=== PATIENT | female | born 1980 | race Caucasian/White ===

== ENCOUNTER 2019-05-18 20:51 | Emergency (ER) | payer MEDICAID, SELFPAY ==
[2019-05-18 20:52] VITALS: PULSE 118; RESP 20; O2SAT 95; BMI 24.3
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
--- NOTE | 2019-05-18 21:02 | XR_ITS ---
WS: [id number] Portable AP upright chest, 05/18/2019 Clinical Data: cough Comparison: Portal chest, 03/07/2018. Findings: No nodules, masses or effusions are seen. The heart is normal. The pulmonary vascularity is not increased. No pneumonia or pneumothorax is seen. XR/XR chest 1V portable [id number] Impression: Negative chest.
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
[2019-05-18] MEDS: haloperidol inj 5 mg/mL INJ 1 mL IM ×2 (21:09→21:46)
[2019-05-18 21:29] VITALS: BP 94/78; PULSE 103; RESP 18; O2SAT 96
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
[2019-05-18 23:55] VITALS: PULSE 78; RESP 16; O2SAT 98
== END 2019-05-18 23:56 | disposition home or self-care (01) ==
PROVIDERS: Emergency Provider Emergency Medicine; Family Provider Nurse Practitioner; PCP Nurse Practitioner
DX: S01.81XA Laceration without foreign body of other part of head, initial encounter (principal); Z87.891 Personal history of nicotine dependence; Y04.2XXA Assault by strike against or bumped into by another person, initial encounter
CPT/HCPCS: 12345; 70450; 71045; 72125; 96372; 99281; 99284; J1630

== ENCOUNTER → 2019-06-08 13:27 | Outpatient (BNVA) | payer MEDICAID, SELFPAY | PROVIDERS: Family Provider Nurse Practitioner; PCP Nurse Practitioner; Visit Provider Specialist | DX: G43.711 Chronic migraine without aura, intractable, with status migrainosus (principal); F17.210 Nicotine dependence, cigarettes, uncomplicated | CPT/HCPCS: 99213 ==

== ENCOUNTER → 2019-06-09 12:17 | Outpatient (BNVA) | payer MEDICAID, SELFPAY | PROVIDERS: Family Provider Nurse Practitioner; PCP Nurse Practitioner; Visit Provider Family Medicine | DX: N89.8 Other specified noninflammatory disorders of vagina (principal); Z72.51 High risk heterosexual behavior; N76.0 Acute vaginitis | CPT/HCPCS: 81000; 87070; 87086; 87491; 87591 ==

== ENCOUNTER → 2019-06-16 17:40 | Outpatient (BNVA) | payer MEDICAID, SELFPAY | PROVIDERS: Family Provider Nurse Practitioner; PCP Nurse Practitioner; Visit Provider Family Medicine | DX: R50.9 Fever, unspecified (principal) | CPT/HCPCS: 87400 ==

== ENCOUNTER → 2019-08-21 07:42 | Outpatient (BNVA) | payer MEDICAID, SELFPAY | PROVIDERS: Family Provider Nurse Practitioner; PCP Nurse Practitioner; Visit Provider Psychiatry & Neurology Psychiatry | DX: F33.2 Major depressive disorder, recurrent severe without psychotic features (principal); F41.1 Generalized anxiety disorder; F43.12 Post-traumatic stress disorder, chronic; F10.20 Alcohol dependence, uncomplicated; F15.20 Other stimulant dependence, uncomplicated | CPT/HCPCS: 99214 ==

== ENCOUNTER 2019-12-06 19:32 | Inpatient (IN) | payer MEDICAID, SELFPAY ==
[2019-12-06 19:48] VITALS: BP 107/57; PULSE 76; RESP 16; TEMP 36.8; O2SAT 97; BMI 20.4
[2019-12-06 19:56] VITALS: BP 106/67; PULSE 72; RESP 16; O2SAT 98
--- NOTE | 2019-12-06 20:23 | ED_ITS ---
HPI - Psych General: Chief Complaint: Psychiatric Symptoms Stated Complaint: self checkin stress unit Time Seen by Provider: 12/06/19 20:07 Source: patient Mode of arrival: ambulatory Limitations: no limitations History of Present Illness: HPI Narrative: Patient with a history of bipolar disorder presents to the ED in the hopes that she can get admitted to the neuropsychiatric unit. The patient has been off her medications and has been using methamphetamines. Last time she used it was yesterday. She would like to get back on her medications, and get straightened out and so would like to be evaluated in the neuropsychiatric unit.She is tearful during the evaluation. MD complaint: feels depressed Associated symptoms: Reports depression; Deny homicidal ideation or suicidal ideation Review of Systems General: Reports: 10 or more systems reviewed and unremarkable except in HPI and below Const: Denies: fever(s), chills or body aches Eyes: Denies: change in vision or blurry vision ENMT: Denies: throat pain, enlarged tonsils, odynophagia, hoarseness, mouth pain or swelling of lips/tongue Card: Denies: palpitations, irregular heart rhythm, edema or swelling of feet/ankles Resp: Denies: dyspnea, productive cough or non-productive cough GI: Denies: abdominal pain, nausea or vomiting : Denies: flank pain, difficulty voiding, dysuria, urinary frequency, urinary urgency or urinary hesitancy Musc: Denies: neck pain, back pain or extremity swelling Skin/Breast: Denies: rash, pruritus or erythema Neuro: Denies: headache(s), numbness in extremities or weakness in extremities Psych: Reports: anxiety and depression; Denies: suicidal ideation or homicidal ideation Endo: Denies: polyuria, polydipsia or tired all the time [facility] ED PFSH: Family History Other Cancer Denies family history of Diabetes CAD (coronary artery disease) Hypertension Stroke Social History Smoking and tobacco status: current every day smoker cigarettes Packs smoked per day: 1 Alcohol intake: former History of recent travel: No Female Reproductive History: Date of last menstrual period: 06/02/19 Physical Exam Const: COMMON NORMALS: no acute distress, average body habitus, patient oriented x3, no limitations, healthy appearing, alert and well nourished HENMT: COMMON NORMALS: normocephalic, atraumatic and moist oral mucous membranes HEAD & SCALP: normocephalic and atraumatic Neck/C-Spine: COMMON NORMALS: no meningeal signs and no JVD Resp: COMMON NORMALS: normal respiratory effort, No retractions, No use of accessory muscles, clear to auscultation bilaterally and percussion normal AUSCULTATION: clear to auscultation bilaterally PERCUSSION: percussion normal Cardio: COMMON NORMALS: no JVD, regular rate, regular rhythm, S1 normal heart sound present, S2 normal heart sound present, No gallops present (Cardio), No clicks present (Cardio), No murmurs present (Cardio), No rub (Cardio) and Peripheral pulses 2+ throughout RATE: regular rate RHYTHM: regular rhythm HEART SOUNDS: S1 normal heart sound present and S2 normal heart sound present PERIPHERAL PULSES: Peripheral pulses 2+ throughout GI: COMMON NORMALS: Normal to inspection, nondistended, normoactive bowel sounds present, Soft to palpation, non-tender, No hepatosplenomegaly present, no masses and no bruits PALPATION: Yes Soft to palpation and Yes No hepatosplenomegaly present Extremity: COMMON NORMALS: normal to inspection, full ROM, capillary refill normal, no calf tenderness and no pedal edema Neuro: COMMON NORMALS: patient oriented x3 SENSORIUM/ORIENTATION: Yes alert MENINGEAL SIGNS: Yes no meningeal signs Skin: COMMON NORMALS: no rashes or lesions noted, no wounds, turgor normal, no jaundice, no petechiae and no mottling GENERAL SKIN EXAM: no rashes or lesions noted and turgor normal MDM - Psych MDM Narrative: Medical decision making narrative: 39-year-old female patient with depression and substance abuse. She was at the emergency department for evaluation to see if she was appropriate for neuropsychiatric unit. She was medically cleared, she does have a UTI and was given a dose of intramuscular ceftriaxone in the emergency department. She is admitted to the neuropsychiatric unit for further evaluation and management. Medical Records: Attestation: I reviewed the patient's medical records. Lab Data: Attestation: I reviewed the patient's lab results. Labs: Lab Results 09/12/06/19 12/06/19 Range/Units 20:15 20:15 20:20 WBC 5.5 (4.0-10.0) 10^3/ uL RBC 3.84 L (4.1-5.3) 10^6/u L Hgb 11.8 (11.5-15.3) g/dL Hct 36.8 L (37.0-47.0) % MCV 95.8 (81-99) fL MCH 30.7 (28.0-34.0) pg MCHC 32.1 (30.0-36.0) g/dL RDW 12.6 (12.1-15.1) % Plt Count 275 (130-400) 10^3/c mm MPV 9.8 (7.4-10.4) fL Neut % (Auto) 55.2 % Lymph % (Auto) 30.2 % [place] % (Auto) 10.0 % Eos % (Auto) 2.6 % Baso % (Auto) 1.8 % Neut # (Auto) 3.03 (1.8-7.7) 10^3/u L Lymph # (Auto) 1.7 (0.8-4.8) 10^3/u L [place] # (Auto) 0.6 (0.2-0.9) 10^3/u L Eos # (Auto) 0.1 (0.0-0.8) 10^3/u L Baso # (Auto) 0.1 (0.0-0.1) 10^3/u L Nucleated RBC % (a uto) 0 % Nucleated RBCs # 0.0 /100WBC Sodium 139 (136-145) mmol/L Potassium 4.0 (3.5-5.1) mmol/L Chloride 103 (98-107) mmol/L Carbon Dioxide 24 (22-29) mmol/L Anion Gap 16.0 (5-19) BUN 12 (6-20) mg/dL Creatinine 1.0 H (0.5-0.9) mg/dL GFR Calculation 61.4 L (90-130) mL/min Glucose 88 (65-115) mg/dL Calculated Osmolal ity 287 (285-295) mOsm/k g Calcium 9.1 (8.5-10.5) mg/dL Total Bilirubin 0.4 (0.15-1.2) mg/dL AST 50 H (0-32) U/L ALT 32 (0-33) U/L Alkaline Phosphata se 54 (35-105) IU/L Total Protein 6.5 L (6.6-8.7) g/dL Albumin 4.3 (3.5-5.2) g/dL Globulin 2.2 (1.3-4.6) g/dL HCG, Qual Negative (Negative) Urine Color (Yellow) Urine Appearance (CLEAR) Urine pH (5-7) Ur Specific Gravit y (1.005-1.030) Urine Protein (Negative) Urine Glucose (UA) (Normal) Urine Ketones (Negative) Urine Blood (Negative) Urine Nitrate (Negative) Urine Bilirubin (Negative) Urine Urobilinogen (Negative) mg/dL Ur Leukocyte Maria Esther ase (Negative) Urine RBC (0-2) /hpf Urine WBC (0-5) /hpf Ur Squamous Epith Cells (0-5) /hpf Amorphous Sediment /hpf Urine Bacteria (NONE) /hpf Salicylates < 0.3 L (3-10) mg/dL Urine Opiates Scre en (Negative) ng/mL Acetaminophen < 5.0 L (10-30) ug/mL Ur Barbiturates Sc reen (Negative) ng/mL Ur Phencyclidine S crn (Negative) ng/mL Ur Amphetamines Sc reen (Negative) ng/mL U Benzodiazepines Scrn (Negative) ng/mL Urine Cocaine Scre en (Negative) ng/mL U Marijuana (THC) Screen (Negative) ng/mL Ethyl Alcohol < 10 (0-10) mg/dL 12/06/19 12/06/19 Range/Units 20:20 20:20 WBC (4.0-10.0) 10^3/ uL RBC (4.1-5.3) 10^6/u L Hgb (11.5-15.3) g/dL Hct (37.0-47.0) % MCV (81-99) fL MCH (28.0-34.0) pg MCHC (30.0-36.0) g/dL RDW (12.1-15.1) % Plt Count (130-400) 10^3/c mm MPV (7.4-10.4) fL Neut % (Auto) % Lymph % (Auto) % [place] % (Auto) % Eos % (Auto) % Baso % (Auto) % Neut # (Auto) (1.8-7.7) 10^3/u L Lymph # (Auto) (0.8-4.8) 10^3/u L [place] # (Auto) (0.2-0.9) 10^3/u L Eos # (Auto) (0.0-0.8) 10^3/u L Baso # (Auto) (0.0-0.1) 10^3/u L Nucleated RBC % (a uto) % Nucleated RBCs # /100WBC Sodium (136-145) mmol/L Potassium (3.5-5.1) mmol/L Chloride (98-107) mmol/L Carbon Dioxide (22-29) mmol/L Anion Gap (5-19) BUN (6-20) mg/dL Creatinine (0.5-0.9) mg/dL GFR Calculation (90-130) mL/min Glucose (65-115) mg/dL Calculated Osmolal ity (285-295) mOsm/k g Calcium (8.5-10.5) mg/dL Total Bilirubin (0.15-1.2) mg/dL AST (0-32) U/L ALT (0-33) U/L Alkaline Phosphata se (35-105) IU/L Total Protein (6.6-8.7) g/dL Albumin (3.5-5.2) g/dL Globulin (1.3-4.6) g/dL HCG, Qual (Negative) Urine Color Yellow (Yellow) Urine Appearance Clear (CLEAR) Urine pH 5 (5-7) Ur Specific Gravit y 1.020 (1.005-1.030) Urine Protein Neg (Negative) Urine Glucose (UA) Norm (Normal) Urine Ketones Negative (Negative) Urine Blood 2+ H (Negative) Urine Nitrate Positive H (Negative) Urine Bilirubin Neg (Negative) Urine Urobilinogen Norm (Negative) mg/dL Ur Leukocyte Maria Esther ase 2+ H (Negative) Urine RBC 5-10 H (0-2) /hpf Urine WBC 25-40 H (0-5) /hpf Ur Squamous Epith Cells 15-25 H (0-5) /hpf Amorphous Sediment 1+ /hpf Urine Bacteria 2+ H (NONE) /hpf Salicylates (3-10) mg/dL Urine Opiates Scre en Negative (Negative) ng/mL Acetaminophen (10-30) ug/mL Ur Barbiturates Sc reen Negative (Negative) ng/mL Ur Phencyclidine S crn Negative (Negative) ng/mL Ur Amphetamines Sc reen Positive H (Negative) ng/mL U Benzodiazepines Scrn Negative (Negative) ng/mL Urine Cocaine Scre en Negative (Negative) ng/mL U Marijuana (THC) Screen Negative (Negative) ng/mL Ethyl Alcohol (0-10) mg/dL Discharge Plan Discharge Patient Disposition: Placed in Observation Admit Provider: Donovan Spaulding Clinical Impression: Depression, Methamphetamine abuse Condition: Stable Interventions: ED Discharge Assessment Last Done: 12/06/19 22:12 ED Charges Last Done: 12/06/19 22:12 Discharge Date/Time: 12/06/19 22:30 Coding Level of Care Code ED Strawberry Grower for Antoni Fwd Exam Comprehensive
[2019-12-06 20:50] LABS: Alanine Aminotransferase 32 U/L (0-33); Albumin Level 4.3 g/dL (3.5-5.2); Alkaline Phosphatase 54 IU/L (35-105); Aspartate Amino Transferase 50 U/L (0-32); Blood Urea Nitrogen 12 mg/dL (6-20); Calcium 9.1 mg/dL (8.5-10.5); Carbon Dioxide 24 mmol/L (22-29); Chloride 103 mmol/L (98-107); Globulin 2.2 g/dL (1.3-4.6); Glomerular Filtration Rate 61.4 mL/min (90-130); Glucose 88 mg/dL (65-115); Osmolality Calculated 287 mOsm/kg (285-295); Sodium 139 mmol/L (136-145); Total Bilirubin 0.4 mg/dL (0.15-1.2); Total Protein 6.5 g/dL (6.6-8.7)
[2019-12-06 20:51] VITALS: BP 106/67; PULSE 68; RESP 16; O2SAT 98
[2019-12-06 20:51] LABS: Acetaminophen < 5.0 ug/mL (10-30); Alcohol Level < 10 mg/dL (0-10); Salicylate < 0.3 mg/dL (3-10)
[2019-12-06 21:04] LABS: Basophils # 0.1 10^3/uL (0.0-0.1); Basophils % 1.8 %; Eosinophils # 0.1 10^3/uL (0.0-0.8); Eosinophils % 2.6 %; Hematocrit 36.8 % (37.0-47.0); Hemoglobin 11.8 g/dL (11.5-15.3); Lymphocytes # 1.7 10^3/uL (0.8-4.8); Lymphocytes % 30.2 %; Mean Corpuscular HGB Conc 32.1 g/dL (30.0-36.0); Mean Corpuscular Hemoglobin 30.7 pg (28.0-34.0); Mean Corpuscular Volume 95.8 fL (81-99); Mean Platelet Volume 9.8 fL (7.4-10.4); Monocytes # 0.6 10^3/uL (0.2-0.9); Neutrophils # 3.03 10^3/uL (1.8-7.7); Neutrophils % 55.2 %; Nucleated Red Blood Cells % 0 %; Platelet Count 275 10^3/cmm (130-400); Red Blood Count 3.84 10^6/uL (4.1-5.3); Red Cell Distribution Width 12.6 % (12.1-15.1); White Blood Count 5.5 10^3/uL (4.0-10.0)
[2019-12-06 21:08] LABS: Add Urine Microscopic? YES; Bilirubin Urine Neg (Negative); Blood Urine 2+ (Negative); Glucose Urine UA Norm (Normal); HCG Qualitative Urine. Negative (Negative); Ketones Urine Negative (Negative); Leukocyte Esterase Urine 2+ (Negative); Nitrate Urine Positive (Negative); Protein Urine Neg (Negative); Urine Appearance Clear (CLEAR); Urine Color Yellow (Yellow); Urobilinogen Urine Norm (Negative); pH Urine 5 (5-7)
[2019-12-06 21:15] LABS: Amphetamines Screen Urine Positive (Negative); Barbiturates Screen Urine Negative (Negative); Benzodiazepines Screen Urine Negative (Negative); Cocaine Screen Urine Negative (Negative); Opiate Screen Urine Negative (Negative); PCP Screen Urine Negative (Negative); THC Screen Urine Negative (Negative)
[2019-12-06 21:42] LABS: Add Urine Culture? No; Amorphous Sediment Urine 1+ /hpf; Bacteria Urine 2+ /hpf; Squamous Epithelial Cell Urine 15-25 /hpf (0-5); WBC Urine 25-40 /hpf (0-5)
[2019-12-06] MEDS: cefTRIAXone 1,000 mg SDV 1000 MG IM (21:53)
[2019-12-06 22:00] VITALS: BP 99/67; PULSE 84; RESP 16; TEMP 36.6; O2SAT 97
[2019-12-06 22:12] VITALS: BP 134/58; PULSE 78; RESP 16; TEMP 36.7; O2SAT 99
[2019-12-06] MEDS: hyDROXYzine 25 mg Capsule 50 MG PO (22:55)
[2019-12-06] MEDS: trazodone 50 mg Tablet PO (22:56)
[2019-12-07 06:00] VITALS: BP 95/58; PULSE 62; RESP 16; TEMP 36.9; O2SAT 97
[2019-12-07] MEDS: ropinirole 1 mg Tablet 0.5 MG PO (07:58)
[2019-12-07] MEDS: gabapentin 400 mg Capsule PO ×2 (07:58→20:31)
[2019-12-07] MEDS: citalopram 20 mg Tablet 40 MG PO (07:58)
[2019-12-07] MEDS: nitrofurantoin SR (BID) 100 mg Capsule PO ×2 (07:58→18:04)
[2019-12-07] MEDS: naltrexone hcl 50 mg Tablet PO (07:59)
[2019-12-07] MEDS: naproxen 500 mg Tablet 250 MG PO (12:02)
[2019-12-07] MEDS: diazePAM 5 mg Tablet PO (12:02)
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
[2019-12-07 14:00] VITALS: BP 102/62; PULSE 62; RESP 20; TEMP 36.8; O2SAT 97
[2019-12-07 19:44] VITALS: BP 90/46; PULSE 85; RESP 18; TEMP 36.6; O2SAT 96
[2019-12-07] MEDS: acetaminophen 325 mg Tablet 650 MG PO (20:31)
[2019-12-07] MEDS: hyDROXYzine 25 mg Capsule 50 MG PO (20:31)
[2019-12-07] MEDS: trazodone 100 mg Tablet PO (20:32)
[2019-12-08 06:00] VITALS: BP 108/63; PULSE 90; RESP 17; TEMP 36.5; O2SAT 98
[2019-12-08] MEDS: gabapentin 400 mg Capsule PO ×2 (08:26→19:50)
[2019-12-08] MEDS: nitrofurantoin SR (BID) 100 mg Capsule PO ×2 (08:26→18:22)
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
[2019-12-08] MEDS: ARIPiprazole 2 mg Tablet PO (11:45)
[2019-12-08 14:00] VITALS: BP 93/57; PULSE 59; RESP 20; TEMP 37; O2SAT 99
[2019-12-08 19:46] VITALS: BP 106/68; PULSE 70; RESP 13; TEMP 36.9; O2SAT 98
[2019-12-08] MEDS: zolpidem 5 mg Tablet PO (19:50)
[2019-12-08] MEDS: mirtazapine 30 mg Tablet PO (19:50)
--- NOTE | 2019-12-08 20:19 | PC.NURSE ---
pt given scheduled gabapentin, remeron and ambien.
[2019-12-09 06:00] VITALS: BP 113/73; PULSE 64; RESP 13; TEMP 36.8; O2SAT 97
[2019-12-09] MEDS: acetaminophen 325 mg Tablet 650 MG PO ×2 (06:12→20:21)
[2019-12-09] MEDS: nitrofurantoin SR (BID) 100 mg Capsule PO ×2 (07:51→16:46)
[2019-12-09] MEDS: gabapentin 400 mg Capsule PO ×3 (07:51→20:22)
[2019-12-09] MEDS: ARIPiprazole 2 mg Tablet PO (07:52)
[2019-12-09 13:30] VITALS: BP 113/75; PULSE 69; RESP 18; TEMP 37.1; O2SAT 97
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
[2019-12-09 19:35] VITALS: BP 97/58; PULSE 78; RESP 16; TEMP 37.3; O2SAT 96
[2019-12-09] MEDS: hyDROXYzine 25 mg Capsule 50 MG PO (20:21)
[2019-12-09] MEDS: zolpidem 5 mg Tablet PO (20:21)
[2019-12-09] MEDS: mirtazapine 30 mg Tablet PO (20:22)
--- NOTE | 2019-12-09 20:56 | PC.NURSE ---
Visteril/Trazodone PRN VISTERIL 50MG PO GIVEN FOR ANXIETY PRN TRAZODONE 50 MG PO GIVEN FOR SLEEP WILL CONTINUE TO MONITOR PATIENT
--- NOTE | 2019-12-09 20:57 | PC.NURSE ---
Visteril/TYLENOL PRN VISTERIL 50MG PO GIVEN FOR ANXIETY PRN TYLENOL 650 MG PO GIVEN FOR BACK PAIN RATED 6 ON 1-10 PAIN SCALE AND FOLLOWED UP WITH PT REPORT OF A DECREASE IN PAIN TO A 3 ON A 1-10 PAIN SCALE WILL CONTINUE TO MONITOR PATIENT
[2019-12-10 06:00] VITALS: BP 138/81; PULSE 80; RESP 16; TEMP 36.4; O2SAT 98
[2019-12-10] MEDS: gabapentin 400 mg Capsule PO (08:02)
[2019-12-10] MEDS: nitrofurantoin SR (BID) 100 mg Capsule PO (08:02)
[2019-12-10] MEDS: ARIPiprazole 10 mg Tablet 5 MG PO (08:02)
[2019-12-10 09:49] VITALS: BP 138/81; PULSE 80; RESP 16; TEMP 36.4; O2SAT 98
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
== END 2019-12-10 10:42 | disposition home or self-care (01) | DRG 881 ==
LOC: ER 20:07 → NP 21:48
PROVIDERS: Family Medicine; Admitting Provider Psychiatry & Neurology Psychiatry; PCP Nurse Practitioner; Visit Provider Psychiatry & Neurology Psychiatry
DX: F32.9 Major depressive disorder, single episode, unspecified (principal); F15.20 Other stimulant dependence, uncomplicated; F17.210 Nicotine dependence, cigarettes, uncomplicated; F10.20 Alcohol dependence, uncomplicated; F43.12 Post-traumatic stress disorder, chronic
CPT/HCPCS: 12345; 36415; 80053; 80306; 80307; 81001; 81025; 85025; 96372; 99284; G0378; J0696

== ENCOUNTER 2019-12-23 00:37 | Emergency (ER) | payer MEDICAID, SELFPAY ==
[2019-12-23 00:39] VITALS: BP 120/88; PULSE 75; RESP 16; TEMP 36.9; O2SAT 99; BMI 21.7
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
[2019-12-23 00:54] VITALS: BP 128/96; PULSE 82; O2SAT 99
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
[2019-12-23 01:14] VITALS: RESP 18
[2019-12-23] MEDS: ondansetron 2 mg/ML SDV 2 mL 4 MG IM (01:14)
[2019-12-23] MEDS: morphine 4 mg/mL SDV 1 mL IM (01:14)
[2019-12-23] MEDS: ketorolac 60 mg/2 mL INJ IM (02:36)
[2019-12-23] MEDS: bacitracin ointment Pkt 1 EACH TOPICAL (02:36)
[2019-12-23 02:45] VITALS: BP 114/78; PULSE 75; RESP 16; O2SAT 97
[2019-12-23 03:32] VITALS: BP 114/78; PULSE 75; RESP 16; O2SAT 97
== END 2019-12-23 03:37 | disposition home or self-care (01) ==
PROVIDERS: Emergency Provider Physician Assistant; PCP Nurse Practitioner
DX: S70.11XA Contusion of right thigh, initial encounter (principal); S60.512A Abrasion of left hand, initial encounter; S90.512A Abrasion, left ankle, initial encounter; Y04.2XXA Assault by strike against or bumped into by another person, initial encounter; F17.210 Nicotine dependence, cigarettes, uncomplicated
CPT/HCPCS: 12345; 29130; 70450; 73130; 73502; 73610; 96372; 99283; E0114; J1885; J2270; J2405

== ENCOUNTER 2019-12-29 16:07 | Emergency (ER) | payer MEDICAID, SELFPAY ==
[2019-12-29 16:09] VITALS: BP 114/68; PULSE 93; RESP 20; TEMP 36.8; O2SAT 89; BMI 19.8
--- NOTE | 2019-12-29 16:24 | USR_ITS ---
PROCEDURE INFORMATION: Exam: US Duplex Left Upper Extremity Veins, Limited Exam date and time: 12/29/2019 4:57 PM Age: 39 years old Clinical indication: Pain; Arm, lower; Left; Additional info: Edema TECHNIQUE: Imaging protocol: Real-time Duplex ultrasound of the Left Upper Extremity with 2-D seay scale, color Doppler flow and spectral waveform analysis with image documentation. Limited exam focused on the left upper extremity veins. COMPARISON: No relevant prior studies available. FINDINGS: Left deep veins: Unremarkable. Axillary and brachial veins are patent throughout without thrombus. Normal Doppler waveforms. Normal compressibility and/or augmentation response. Visualized internal jugular and subclavian veins are patent. Left superficial veins: Unremarkable. Visualized cephalic and basilic veins are patent without thrombus. Soft tissues: In the left lateral forearm there is an irregular shaped subcutaneous fluid collection with echogenic foci measuring 0.9 x 0.2 by 0.2 cm. US/[place] [id number] IMPRESSION: 1. No evidence for deep vein thrombosis in the left upper extremity. 2. Irregular shaped soft tissue fluid collection in the left lateral forearm. Echogenic foci within this fluid collection could represent gas bubbles or foreign bodies. An abscess or puncture injury is not excluded.
--- NOTE | 2019-12-29 16:26 | ED_ITS ---
Documented by User: Deann Arce CHUCHO Carey 12/30/19 07:11 HPI - Skin/Abscess/Foreign Bdy General: Chief complaint: Skin/Abscess/Foreign Body Stated complaint: possible l arm infection Time Seen by Provider: 12/29/19 16:10 History of Present Illness: HPI narrative: 39-year-old female patient presents to the emergency department with 2-week onset of left arm infection. She reports use of IV drug abuse, methamphetamines, states possible infection due to injection. She reports drainage from the area 2 days ago. She reports some improvement today. She denies fever or chills. Oxygen saturation on room air 100% upon exam. She appears not toxic. MD complaint: abscess/boil Onset (ago): week(s) (2) Tetanus up to date: yes Location: LUE Severity: moderate Severity scale (1-10): 4 Quality: aching Pain Consistency: intermittent Associated symptoms: Reports no associated symptoms; Deny chills, fever(s), nausea or vomiting Treatments prior to arrival: attempted to drain pus at home (2 days prior) Review of Systems General: Reports: 10 or more systems reviewed and unremarkable except in HPI and below Const: Denies: fever(s), chills or diaphoresis Eyes: Denies: blurry vision or eye redness ENMT: Denies: throat pain, dental pain or disequilibrium Card: Denies: chest pain, palpitations or irregular heart rhythm Resp: Denies: dyspnea, productive cough, non-productive cough or wheezing GI: Denies: abdominal pain, nausea or vomiting : Denies: difficulty voiding or dysuria Musc: Denies: back pain Skin/Breast: Reports: erythema and skin tenderness; Denies: rash or pruritus Neuro: Denies: headache(s), weakness in extremities or behavioral changes Bandar/Lymph: Denies: easy bruising PFSH ED PFSH: Family History Other Cancer Denies family history of Diabetes CAD (coronary artery disease) Hypertension Stroke Social History Smoking and tobacco status: current every day smoker cigarettes Packs smoked per day: 1 Alcohol intake: former History of recent travel: No Female Reproductive History: Date of last menstrual period: 10/14/20 Physical Exam Const: COMMON NORMALS: no acute distress, patient oriented x3, healthy appearing and alert GENERAL APPEARANCE: cooperative, comfortable and well hydrated HENMT: COMMON NORMALS: normocephalic, Normal external nose present and moist oral mucous membranes HEAD & SCALP: normocephalic NOSE: Normal external nose present Eye: COMMON NORMALS: Equal, round and reactive pupils present and EOMs intact bilaterally GENERAL EYE: appearance normal, both eyes and all related structures PUPIL: Yes Equal, round and reactive pupils present Neck/C-Spine: COMMON NORMALS: full ROM and no lymphadenopathy GENERAL: Yes normal visual inspection and Yes trachea midline CERVICAL SPINE: Yes cervical ROM normal Chest: COMMONS NORMALS: normal inspection of the chest Resp: COMMON NORMALS: normal respiratory effort and clear to auscultation bilaterally EFFORT & INSPECTION: Yes able to speak in complete sentences AUSCULTATION: clear to auscultation bilaterally Cardio: COMMON NORMALS: regular rhythm, S1 normal heart sound present, S2 normal heart sound present and Peripheral pulses 2+ throughout RHYTHM: regular rhythm HEART SOUNDS: S1 normal heart sound present and S2 normal heart sound present PERIPHERAL PULSES: Peripheral pulses 2+ throughout GI: COMMON NORMALS: Soft to palpation and non-tender INSPECTION: Yes normal to inspection PALPATION: Yes Soft to palpation : COMMON NORMALS: Yes no CVA tenderness BLADDER/KIDNEY EXAM: Yes no CVA tenderness Back/Pelvis: COMMON NORMALS: no CVA tenderness and thoracic and lumbar spine normal to inspection Extremity: COMMON NORMALS: normal to inspection and capillary refill normal GENERAL: Yes normal exam except as noted LEFT UPPER EXTREMITY: Yes elbow joint Left elbow: Yes inspection (Normal inspection), Yes palpation (No tenderness with palpation or supination/pronation), Yes ROM (Full range of motion noted without pain/deficit) and Yes neurovascular exam (Distally intact) Neuro: COMMON NORMALS: patient oriented x3 and no focal motor deficits SENSORIUM/ORIENTATION: Yes alert Psych: COMMON NORMALS: mental status grossly normal, Normal thought process present and cooperative ACTIVITY/MOTOR BEHAVIOR: Yes appropriate eye contact THOUGHT PROCESS: Normal thought process present Skin: COMMON NORMALS: no rashes or lesions noted and turgor normal GENERAL SKIN EXAM: no rashes or lesions noted and turgor normal RASHES: no rashes WOUNDS: Yes wounds noted (left mid FA with open wound, 4 mm opening with surrounding cellulitis circumferential, extending erythema to the medial elbow, area of induration noted proximal to the opening of 1.5 cm x 2 cm, tunneling of 8 mm noted in the opening, minimal drainage, serous) Course ED course: 39-year-old female patient presents to the emergency department with left arm abscess. Venous ultrasound/soft tissue ultrasound pending along with serology work-up. She does not appear acutely ill. Case discussed with Dr. Valdivia and will defer IV antibiotics at this time. Transfer of care to Jimi Naik NP. Vital Signs: Vital signs: Vital Signs Temperature 98.3 F 12/29/19 16:09 Pulse Rate 93 12/29/19 16:09 Respiratory Rate 20 H 12/29/19 16:09 Blood Pressure 114/68 12/29/19 16:09 Pulse Oximetry 96 12/29/19 18:07 MDM - Skin/Abscess/Foreign Bdy Lab Data: Labs: Lab Results 12/29/19 12/29/19 Range/Units 16:57 16:57 WBC 5.7 (4.0-10.0) 10^3/ uL RBC 3.71 L (4.1-5.3) 10^6/u L Hgb 11.6 (11.5-15.3) g/dL Hct 36.0 L (37.0-47.0) % MCV 97.0 (81-99) fL MCH 31.3 (28.0-34.0) pg MCHC 32.2 (30.0-36.0) g/dL RDW 12.7 (12.1-15.1) % Plt Count 296 (130-400) 10^3/c mm MPV 9.0 (7.4-10.4) fL Neut % (Auto) 73.5 % Lymph % (Auto) 14.8 % Ogle % (Auto) 9.1 % Eos % (Auto) 1.2 % Baso % (Auto) 1.2 % Neut # (Auto) 4.18 (1.8-7.7) 10^3/u L Lymph # (Auto) 0.8 (0.8-4.8) 10^3/u L Ogle # (Auto) 0.5 (0.2-0.9) 10^3/u L Eos # (Auto) 0.1 (0.0-0.8) 10^3/u L Baso # (Auto) 0.1 (0.0-0.1) 10^3/u L Nucleated RBC % (a uto) 0 % Nucleated RBCs # 0.0 /100WBC Sodium 138 (136-145) mmol/L Potassium 3.3 L (3.5-5.1) mmol/L Chloride 102 (98-107) mmol/L Carbon Dioxide 26 (22-29) mmol/L Anion Gap 13.3 (5-19) BUN 18 (6-20) mg/dL Creatinine 0.6 (0.5-0.9) mg/dL GFR Calculation 110.7 (90-130) mL/min Glucose 66 (65-115) mg/dL Calculated Osmolal ity 286 (285-295) mOsm/k g Calcium 9.1 (8.5-10.5) mg/dL Discharge Plan Discharge Patient Disposition: Home Clinical Impression: Cellulitis Qualifiers: Site of cellulitis: extremity Site of cellulitis of extremity: upper extremity Laterality: left Qualified Code(s): L03.114 - Cellulitis of left upper limb Abscess of skin or subcutaneous tissue Qualifiers: Site of cutaneous abscess: extremity Site of cutaneous abscess of extremity: upper extremity Laterality: left Qualified Code(s): L02.414 - Cutaneous abscess of left upper limb Condition: Stable Prescriptions: New Bactrim DS 800-160 mg tablet 1 tab PO BID 14 Days Qty: 28 RF: 0 No Action mirtazapine [Remeron] 15 mg tablet 15 mg PO DAILY RF: 0 hydroxyzine HCl 50 mg tablet 50 mg PO QID PRN (Reason: insomnia) Qty: 120 RF: 2 gabapentin 400 mg capsule 400 mg PO TID Qty: 90 RF: 2 naltrexone 50 mg tablet 50 mg PO DAILY Qty: 30 RF: 2 aripiprazole 10 mg Tablet 5 mg PO DAILY 30 Days Qty: 30 RF: 1 mirtazapine 30 mg Tablet 30 mg PO BEDTIME 30 Days Qty: 30 RF: 1 Naprosyn 500 mg tablet 500 mg PO BID PRN (Reason: Pain) Qty: 0 RF: 1 Discharge Orders: Discharge Order (Routine); Ordered 12/29/19 Ordered By: Jimi Naik Referrals: Kait Rg FNP [Primary Care Provider] - Discharge Diet: Usual diet Discharge Activity: Resume usual activity Patient Instructions: Cellulitis (ED), Abscess (ED) Activity Restrictions/Additional Instructions: Follow-up with medical provider as directed. Take medications as prescribed. Return to the ER or your medical provider if condition worsens. Please read and understand discharge instructions. If any questions ask please. 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[employer] Shipping for Chg Fwd Exam Comprehensive Documented by User: IAM Henderson 12/29/19 19:52 HPI - Skin/Abscess/Foreign Bdy General: Chief complaint: Skin/Abscess/Foreign Body Stated complaint: possible l arm infection Time Seen by Provider: 12/29/19 16:10 PFSH ED PFSH: Family History Other Cancer Denies family history of Diabetes CAD (coronary artery disease) Hypertension Stroke Social History Smoking and tobacco status: current every day smoker cigarettes Packs smoked per day: 1 Alcohol intake: former History of recent travel: No Course Vital Signs: Vital signs: Vital Signs Temperature 98.3 F 12/29/19 16:09 Pulse Rate 93 12/29/19 16:09 Respiratory Rate 20 H 12/29/19 16:09 Blood Pressure 114/68 12/29/19 16:09 Pulse Oximetry 96 12/29/19 18:07 MDM - Skin/Abscess/Foreign Bdy Lab Data: Labs: Lab Results 12/29/19 12/29/19 Range/Units 16:57 16:57 WBC 5.7 (4.0-10.0) 10^3/ uL RBC 3.71 L (4.1-5.3) 10^6/u L Hgb 11.6 (11.5-15.3) g/dL Hct 36.0 L (37.0-47.0) % MCV 97.0 (81-99) fL MCH 31.3 (28.0-34.0) pg MCHC 32.2 (30.0-36.0) g/dL RDW 12.7 (12.1-15.1) % Plt Count 296 (130-400) 10^3/c mm MPV 9.0 (7.4-10.4) fL Neut % (Auto) 73.5 % Lymph % (Auto) 14.8 % Ogle % (Auto) 9.1 % Eos % (Auto) 1.2 % Baso % (Auto) 1.2 % Neut # (Auto) 4.18 (1.8-7.7) 10^3/u L Lymph # (Auto) 0.8 (0.8-4.8) 10^3/u L Ogle # (Auto) 0.5 (0.2-0.9) 10^3/u L Eos # (Auto) 0.1 (0.0-0.8) 10^3/u L Baso # (Auto) 0.1 (0.0-0.1) 10^3/u L Nucleated RBC % (a uto) 0 % Nucleated RBCs # 0.0 /100WBC Sodium 138 (136-145) mmol/L Potassium 3.3 L (3.5-5.1) mmol/L Chloride 102 (98-107) mmol/L Carbon Dioxide 26 (22-29) mmol/L Anion Gap 13.3 (5-19) BUN 18 (6-20) mg/dL Creatinine 0.6 (0.5-0.9) mg/dL GFR Calculation 110.7 (90-130) mL/min Glucose 66 (65-115) mg/dL Calculated Osmolal ity 286 (285-295) mOsm/k g Calcium 9.1 (8.5-10.5) mg/dL Discharge Plan Discharge Patient Disposition: Home Clinical Impression: Cellulitis Qualifiers: Site of cellulitis: extremity Site of cellulitis of extremity: upper extremity Laterality: left Qualified Code(s): L03.114 - Cellulitis of left upper limb Abscess of skin or subcutaneous tissue Qualifiers: Site of cutaneous abscess: extremity Site of cutaneous abscess of extremity: upper extremity Laterality: left Qualified Code(s): L02.414 - Cutaneous abscess of left upper limb Condition: Stable Prescriptions: New Bactrim DS 800-160 mg tablet 1 tab PO BID 14 Days Qty: 28 RF: 0 No Action mirtazapine [Remeron] 15 mg tablet 15 mg PO DAILY RF: 0 hydroxyzine HCl 50 mg tablet 50 mg PO QID PRN (Reason: insomnia) Qty: 120 RF: 2 gabapentin 400 mg capsule 400 mg PO TID Qty: 90 RF: 2 naltrexone 50 mg tablet 50 mg PO DAILY Qty: 30 RF: 2 aripiprazole 10 mg Tablet 5 mg PO DAILY 30 Days Qty: 30 RF: 1 mirtazapine 30 mg Tablet 30 mg PO BEDTIME 30 Days Qty: 30 RF: 1 Naprosyn 500 mg tablet 500 mg PO BID PRN (Reason: Pain) Qty: 0 RF: 1 Discharge Orders: Discharge Order (Routine); Ordered 12/29/19 Ordered By: Jimi Naik Referrals: Kait Rg FNP [Primary Care Provider] - Discharge Diet: Usual diet Discharge Activity: Resume usual activity Patient Instructions: Cellulitis (ED), Abscess (ED) Activity Restrictions/Additional Instructions: Follow-up with medical provider as directed. Take medications as prescribed. Return to the ER or your medical provider if condition worsens. Please read and understand discharge instructions. If any questions ask please. 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 for Antoni Fwd Exam Comprehensive
[2019-12-29] MEDS: clindamycin 150 mg Capsule 300 MG PO (16:59)
[2019-12-29 17:01] LABS: Basophils # 0.1 10^3/uL (0.0-0.1); Basophils % 1.2 %; Eosinophils # 0.1 10^3/uL (0.0-0.8); Eosinophils % 1.2 %; Hemoglobin 11.6 g/dL (11.5-15.3); Lymphocytes # 0.8 10^3/uL (0.8-4.8); Lymphocytes % 14.8 %; Mean Corpuscular HGB Conc 32.2 g/dL (30.0-36.0); Mean Corpuscular Hemoglobin 31.3 pg (28.0-34.0); Monocytes # 0.5 10^3/uL (0.2-0.9); Monocytes % 9.1 %; Neutrophils # 4.18 10^3/uL (1.8-7.7); Neutrophils % 73.5 %; Nucleated Red Blood Cells % 0 %; Platelet Count 296 10^3/cmm (130-400); Red Blood Count 3.71 10^6/uL (4.1-5.3); Red Cell Distribution Width 12.7 % (12.1-15.1); White Blood Count 5.7 10^3/uL (4.0-10.0)
[2019-12-29 17:24] LABS: Anion Gap 13.3 (5-19); Blood Urea Nitrogen 18 mg/dL (6-20); Calcium 9.1 mg/dL (8.5-10.5); Carbon Dioxide 26 mmol/L (22-29); Chloride 102 mmol/L (98-107); Glomerular Filtration Rate 110.7 mL/min (90-130); Glucose 66 mg/dL (65-115); Osmolality Calculated 286 mOsm/kg (285-295); Potassium 3.3 mmol/L (3.5-5.1); Sodium 138 mmol/L (136-145)
--- NOTE | 2019-12-29 17:29 | XRR_ITS ---
PROCEDURE INFORMATION: Exam: XR Left Forearm Exam date and time: 12/29/2019 5:58 PM Age: 39 years old Clinical indication: Condition or disease; Other: Foreign body; Patient HX: Left forearm infection, iv drug use; Additional info: Fb on US TECHNIQUE: Imaging protocol: XR Left forearm. Views: 2 views. COMPARISON: No relevant prior studies available. FINDINGS: Bones/joints: No significant bony abnormalities are present.. Soft tissues: On the lateral view of the forearm there is a 1 cm ovoid gas collection in the soft tissues in the anterior mid forearm. This is probably anterior to the mid shaft of the radius on the AP view. This appears to correspond to the echogenic focus seen in this area on recent ultrasound scan. No radiopaque foreign bodies are seen. XR/XR forearm LT 2V [id number] IMPRESSION: 1. There is a 1 cm soft tissue gas collection anterior to the mid shaft of the radius correspond to the ultrasound finding. 2. No radiopaque foreign bodies are seen. 3. No significant bony abnormality.
[2019-12-29] MEDS: potassium chloride ER 10 mEq Tablet 40 MEQ PO (17:56)
[2019-12-29 18:07] VITALS: O2SAT 96
[2019-12-29] MEDS: sulfamethoxazole-trimeth DS 160-800 mg Tablet 1 TAB PO (18:56)
== END 2019-12-29 18:57 | disposition home or self-care (01) ==
PROVIDERS: Nurse Practitioner Family; Emergency Provider Nurse Practitioner Family; PCP Nurse Practitioner
DX: L03.114 Cellulitis of left upper limb (principal); L02.414 Cutaneous abscess of left upper limb; F17.210 Nicotine dependence, cigarettes, uncomplicated
CPT/HCPCS: 12345; 73090; 80048; 85025; 87070; 87075; 87077; 87186; 87205; 93971; 99282; 99283